=== PATIENT | female | born 1955 | race Caucasian/White ===

== ENCOUNTER 2016-05-04 17:53 | Emergency (ER) | payer MEDICAID ==
[2016-05-04] MEDS ORDERED: METOCLOPRAMIDE 10 MG/2 ML VIAL ONE (19:17)
[2016-05-04] MEDS ORDERED: KETOROLAC 30 MG/ML VIAL ONE (19:17)
[2016-05-04] MEDS ORDERED: DIPHENHYDRAMINE 50 MG/ML VIAL ONE (19:17)
== END 2016-05-04 21:22 | disposition home or self-care (01) ==
LOC: ER 17:53
DX: G43.109 Migraine with aura, not intractable, without status migrainosus (principal); H49.9 Unspecified paralytic strabismus; Z79.899 Other long term (current) drug therapy; F17.210 Nicotine dependence, cigarettes, uncomplicated
CPT/HCPCS: 36415; 70450; 71010; 80053; 80061; 82553; 82947; 84484; 85025; 85384; 85610; 85730; 93005; 96374; 96375